=== PATIENT | female | born 1945 | race Asian ===

== ENCOUNTER 2020-06-21 09:58 | Emergency (ER) | payer MEDICARE, OTHER ==
[~2020-06-21] VITALS: Ht 152.4 cm; Wt 56.7 kg
[2020-06-21] MEDS ORDERED: ONDANSETRON ODT 4 MG TAB PO ONE (10:45)
[2020-06-21] MEDS ORDERED: ACETAMINOPHEN/CODEINE#3 (300/30mg) TAB PO ONE (10:45)
[2020-06-21 15:05] VITALS: BP 129/74
== END 2020-06-21 11:10 | disposition short-term general hospital (02) ==
LOC: ER 09:58
DX: S02.32XA Fracture of orbital floor, left side, initial encounter for closed fracture (principal); S02.40FA Zygomatic fracture, left side, initial encounter for closed fracture; S02.40DA Maxillary fracture, left side, initial encounter for closed fracture; W01.0XXA Fall on same level from slipping, tripping and stumbling without subsequent striking against object, initial encounter; Y93.89 Activity, other specified; Y92.89 Other specified places as the place of occurrence of the external cause; Y99.8 Other external cause status
CPT/HCPCS: 70450; 70486; 99285; J7030; Q0162